=== PATIENT | female | born 1945 | race Caucasian/White ===

== ENCOUNTER 2017-12-27 21:18 | Inpatient (IN) ==
[2017-12-27 22:30] LABS: Basophils # 0.1 K/mcL (0.0-0.2); Basophils % 0.7 %; Eosinophils # 0.1 K/mcL (0.0-0.6); Eosinophils % 1.4 %; Immature Granulocytes % 0.8 % (0-4); Lymphocytes # 1.3 K/mcL (0.6-4.6); Mean Corpuscular HGB Conc 33.3 g/dL (31.6-35.5); Mean Corpuscular Hemoglobin 27.5 pg (28.0-33.3); Mean Corpuscular Volume 82.6 fL (83.0-100.0); Mean Platelet Volume 10.7 fL (9.4-12.4); Monocytes # 0.5 K/mcL (0.0-1.3); Monocytes % 4.7 %; Neutrophils # 8.1 K/mcL (1.6-8.9); Platelet Count 227 K/mcL (140-400); Red Blood Count 4.72 M/mcL (3.82-4.97); Red Cell Distribution Width 14.1 % (11.5-14.5); Segmented Neutrophils % 79.4 %
[2017-12-27 22:58] LABS: Troponin I < 0.03 ng/mL (< 0.04)
--- NOTE | 2017-12-27 23:09 | Emergency Department Note ---
Disposition Clinical Impression: Pancreatitis, acute, Abdominal pain Disposition: Admitted As Inpatient Condition: Good Referrals: Aaron Arreaga MD [Primary Care Provider] - Forms: ED Satisfaction Letter, Work/School Release Time of Disposition: 00:10 Abdominal Pain HPI - General Chief Complaint: ED Abdominal Pain Stated Complaint: all over pain/ messed up bowels. Time Seen by Provider: 12/27/17 21:54 Source: patient, family Limitations: no limitations Nursing Notes Reviewed: Yes Vital Signs Reviewed: Yes - History of Present Illness HPI Narrative: 72-year-old female presents to the emergency room for abdominal pain. States it started in her lower chest and then radiates down to her pubic area. Started a few days ago. She states his symptoms got worse tonight. She is been having abdominal pain for 3 months but one to get it checked out tonight. She denies vomiting. No diarrhea. No other complaints. No symptom modification. Pain Scale: 10 - Related Data Home Medications Medication Instructions Recorded Confirmed Albuterol Neb [Proventil Neb] 2.5 mg IH Q4HR PRN 05/25/16 05/25/16 Albuterol Sulfate [Proair Hfa] 2 puff IH Q4H PRN 05/25/16 05/25/16 Alendronate Sodium [Fosamax] 70 mg PO QWEEK 05/25/16 05/25/16 Calcium Carbonate/Vitamin D3 1 tab PO DAILY 05/25/16 05/25/16 [Calcium 500 + Vit D 200 Caplet] Fluticasone/Salmeterol [Advair 1 puff IH BID 05/25/16 05/25/16 250-50 Diskus] Lisinopril [Zestril] 10 mg PO DAILY 05/25/16 05/25/16 Magnesium Oxide [Mgo] 400 mg PO DAILY 05/25/16 05/25/16 Omeprazole [PriLOSEC] 40 mg PO DAILY 05/25/16 05/25/16 Oxygen 1 each .ROUTE AD 05/25/16 05/25/16 Pramipexole [Mirapex] 0.25 mg PO HS 05/25/16 05/25/16 Roflumilast [Daliresp] 500 mcg PO DAILY 05/25/16 05/25/16 Sertraline [Zoloft] 100 mg PO DAILY 05/25/16 05/25/16 Simvastatin [Zocor] 80 mg PO DAILY 05/25/16 05/25/16 Umeclidinium [place] [Incruse 1 puff IH DAILY 05/25/16 05/25/16 Ellipta] hydroCHLOROthiazide 25 mg PO DAILY 05/25/16 05/25/16 [Hydrochlorothiazide] Allergies Allergy/AdvReac Type Severity Reaction Status Date / Time NSAIDS (Non-Steroidal Allergy See Verified 05/25/16 11:44 Anti-Inflamma Comments All systems ED: reviewed and negative except as stated. Constitutional: Reports: as per HPI Eyes: Reports: as per HPI Cardiovascular: Reports: chest pain. Denies: palpitations Respiratory: Denies: cough Gastrointestinal: Reports: abdominal pain Genitourinary: Reports: as per HPI Musculoskeletal: Reports: as per HPI Integumentary: Reports: as per HPI Neurological: Reports: as per HPI Psychiatric: Reports: as per HPI Endocrine: Reports: as per HPI Hematological/Lymphatic: Reports: as per HPI Abdominal Pain PMH - Past Medical History Medical history: Reports: arthritis, asthma, COPD, GERD, hyperlipidemia, hypertension, renal disease Psychiatric history: Reports: depression - Social History Smoking status: Never smoker Alcohol use: Reports: none Drug use: Reports: none Physical Exam HEENT: Head atraumatic normocephalic. Pharynx clear with no exudates. Oral mucosa moist. Uvula midline. TMs clear bilaterally. Trachea midline. No lymphadenopathy. Heart: Regular rate and rhythm. Normal S1 and S2. No gallops, rubs, or murmurs. Lungs: Clear to auscultation bilaterally. No evidence of any rhonchi wheezing or rales. Abdomen: Abdomen is soft. Generalized tenderness on palpation. No guarding. No peritoneal signs. Normal bowel sounds. Extremities: No evidence of cyanosis clubbing or edema. Neuro: Cranial nerves II through XII grossly intact. No focal motor or sensory deficits. Speech is clear. Skin: Normal color. dry. Psych: normal mentation. - General Limitations: no limitations General appearance: alert, in no apparent distress Course Vital Signs Temperature 97.7 F 12/27/17 21:20 Pulse Rate 61 12/27/17 21:20 Respiratory Rate 18 12/27/17 21:20 Blood Pressure 167/82 12/27/17 21:20 O2 Sat by Pulse Oximetry 96 12/27/17 21:20 Temperature 97.7 F 12/27/17 21:20 Pulse Rate 60 12/27/17 23:51 Respiratory Rate 20 12/27/17 23:51 Blood Pressure 166/50 12/27/17 23:51 O2 Sat by Pulse Oximetry 96 12/27/17 23:51 Oxygen Delivery Oxygen Delivery Nasal Cannula Abdominal Pain - MDM Narrative Medical decision making narrative: Patient has evidence of pancreatitis noted on her lab work as well as her CT scan. Patient will be admitted for this. Etiologies include possible pharmacologic etiology with her being on hydrochlorothiazide. I did speak with the hospitalist. Patient will be admitted to their service. - Medical Records Medical records reviewed: Yes I reviewed the patient's medical records. - Lab Data Lab results reviewed: Yes I reviewed the patient's lab results. Result diagrams: 12/27/17 22:18 12/27/17 22:18 Lab Results 12/27/17 12/27/17 Range/Units 22:18 22:18 WBC 10.2 (4.3-11.1) K/mcL RBC 4.72 (3.82-4.97) M/mcL Hgb 13.0 (11.5-15.4) g/dL Hct 39.0 (35.3-44.9) % MCV 82.6 L (83.0-100.0) fL MCH 27.5 L (28.0-33.3) pg MCHC 33.3 (31.6-35.5) g/dL RDW 14.1 (11.5-14.5) % Plt Count 227 (140-400) K/mcL MPV 10.7 (9.4-12.4) fL Immature Gran % 0.8 (0-4) % Seg Neutrophils % 79.4 % Lymphocytes % 13.0 % Monocytes % 4.7 % Eosinophils % 1.4 % Basophils % 0.7 % Neutrophils # 8.1 (1.6-8.9) K/mcL Lymphocytes # 1.3 (0.6-4.6) K/mcL Monocytes # 0.5 (0.0-1.3) K/mcL Eosinophils # 0.1 (0.0-0.6) K/mcL Basophils # 0.1 (0.0-0.2) K/mcL Sodium 133 L (136-145) mEq/L Potassium 4.1 (3.5-5.1) mEq/L Chloride 98 (98-107) mEq/L Carbon Dioxide 24 (23-29) mEq/L BUN 19 (8-23) mg/dL Creatinine 0.94 (0.60-1.20) mg/dL Est GFR ( Amer) > 60 (> 60) Est GFR (Non-Af Amer) 58 L (> 60) BUN/Creatinine Ratio 20 (6-26) Glucose 420 H (70-105) mg/dL Calculated Osmolality 296 (280-300) Calcium 9.3 (8.6-10.3) mg/dL Total Bilirubin 0.5 (0.3-1.0) mg/dL Direct Bilirubin 0.1 (0.0-0.2) mg/dL Indirect Bilirubin 0.4 (0.0-1.2) mg/dL AST 20 (13-39) Units/L ALT 21 (7-52) Units/L Alkaline Phosphatase 93 (34-104) Units/L Troponin I < 0.03 (< 0.04) ng/mL Serum Total Protein 6.3 L (6.4-8.9) g/dL Albumin 3.9 (3.5-5.7) g/dL Globulin 2.4 (2.4-3.5) g/dL Albumin/Globulin Ratio 1.6 (1.1-2.2) Lipase 734 H (11-82) Units/L - Radiology Data Radiology results reviewed: Yes I reviewed the patient's radiology results.
[2017-12-27] MEDS ORDERED: *HR* Nalbuphine 10 MG/ML AMPUL IVP ONE (23:10)
[2017-12-27] MEDS ORDERED: Ondansetron 4 MG/2 ML VIAL IVP ONE (23:10)
[2017-12-27 23:14] LABS: Alanine Aminotransferase 21 Units/L (7-52); Albumin 3.9 g/dL (3.5-5.7); Albumin/Globulin Ratio 1.6 (1.1-2.2); Alkaline Phosphatase 93 Units/L (34-104); Aspartate Amino Transferase 20 Units/L (13-39); BUN/Creatinine Ratio 20 (6-26); Bilirubin,Direct 0.1 mg/dL (0.0-0.2); Bilirubin,Indirect 0.4 mg/dL (0.0-1.2); Bilirubin,Total 0.5 mg/dL (0.3-1.0); Blood Urea Nitrogen 19 mg/dL (8-23); Calcium 9.3 mg/dL (8.6-10.3); Carbon Dioxide 24 mEq/L (23-29); Chloride 98 mEq/L (98-107); Globulin 2.4 g/dL (2.4-3.5); Glucose 420 mg/dL (70-105); Lipase 734 Units/L (11-82); Osmolality,Calculated 296 (280-300); Potassium 4.1 mEq/L (3.5-5.1); Sodium 133 mEq/L (136-145); Total Protein 6.3 g/dL (6.4-8.9); eGFR For Non-African Americans 58 (> 60)
[2017-12-27] MEDS ORDERED: 0.9 % Sodium Chloride 1,000 ML IVC ONE (23:52)
[2017-12-27] MEDS ORDERED: Insulin Regular, Human 100 UNIT/ML SQ ONE (23:52)
[2017-12-28] MEDS ORDERED: *HR* HYDROmorphone (PF) 1 MG/ML SYRINGE IVP ONE (00:47)
[2017-12-28] MEDS ORDERED: Ondansetron 4 MG/2 ML VIAL IVP ONE (00:47)
[2017-12-28] MEDS ORDERED: *HR* FentaNYL (PF) 100 MCG/2 ML VIAL IVP ONE (05:09)
[2017-12-28] MEDS ORDERED: D5% in Water 1,000 ML IVC PRN (05:39)
[2017-12-28] MEDS ORDERED: Dextrose Gel 15 GM/37.5 ML TUBE PO PRN ×2 (05:39)
[2017-12-28] MEDS ORDERED: Naloxone 0.4 MG/ML INJ IVP PRN (05:39)
[2017-12-28] MEDS ORDERED: *HR* Dextrose 50 % in Water (Syg) 50 ML SYRINGE IVP PRN (05:39)
[2017-12-28] MEDS ORDERED: Albuterol 2.5 MG/3 ML NEBULIZER IH PRN (05:44)
--- NOTE | 2017-12-28 05:57 | Internal Med History&Physical ---
Date of Encounter: 12/28/17 Time of Encounter: 05:47 Internal Medicine - H&P: HPI Chief complaint: abdominal pain Admitted From: Emergency Dept Plans for Post Hospital Care: Home History of present illness: Ms. Eugene is a 72 year old female who presents with acute onset abdominal pain with protracted nausea and dry heaving over the last 24 hours. She has had no vomiting or diarrhea. She has been having abdominal pain off and on for the last 3 months concentrated mostly in her midepigastrium and right upper quadrant. However, she had severe and acute onset yesterday that prompted her to come to the ER. Up until yesterday, her pain has been bearable, and she has been able to eat. As of yesterday, however, her pain has been unbearable and she has been unable to eat or drink any oral intake. She denies any fevers, chills, or night sweats. She denies any hematemesis, melena, or hematochezia. She still has her gallbladder, but she does not know if she has had any gallstones or gallbladder problems in the past. She denies any prior gastric or duodenal ulcer disease. She does take medication for GERD, however. She denies any alcohol use or abuse. She denies any history of uncontrolled hyperlipidemia. Workup in ER revealed patient to have acute pancreatitis by lab values and by imaging. She denies any prior history of pancreatitis. Upon my assessment of the patient, she is complaining of epigastric and diffuse abdominal pain that is crampy in nature and episodic. She has active nausea and dry heaving, but she is unable to vomit. Past Med Surg Social Fam HX - Past Medical History Attestation: Yes The following information was validated with the patient. Source: patient, old records reviewed Medical history: arthritis, asthma, COPD, GERD, hyperlipidemia, hypertension, renal disease Psychiatric history: depression - Past Surgical History Surgical History: hysterectomy Additional surgical history: ear surgery - Social History Smoking Status: Former smoker Smokeless Tobacco Status: No Alcohol use: none Drug use: none Current living situation: Home Activity Level: Independent ambulation Recent Out of Country Travel Within the Last 8 Weeks: No - Family History Mother History Unknown: Yes Adopted: No Family Member Ethnicity: Non- Living Status: Cause of : aneurysm Hx Family Cardiac Disorders: No Hx Family Respiratory Disorders: No Hx Family Cancer: No Hx Family GI Disorders: No Hx Family Genitourinary Disorders: No Hx Family Endocrine Disorder: No Hx Family Musculoskeletal Disorders: No Hx Family Neuromuscular Disorders: No Hx Family Neurologic Disorders: No Hx Family HEENT Disorders: No Hx Family Autoimmune Disorders: No Hx Family Reproductive Disorders: No Hx Family Psychosocial Disorders: No - Additional Family History Additional family history: No FH pancreatitis Internal Medicine - H&P: Meds Albuterol Neb [Proventil Neb] 2.5 mg IH Q4HR PRN 05/25/16 [History] Albuterol Sulfate [Proair Hfa] 2 puff IH Q4H PRN 05/25/16 [History] Alendronate Sodium [Fosamax] 70 mg PO QWEEK 05/25/16 [History] Calcium Carbonate/Vitamin D3 [Calcium 500 + Vit D 200 Caplet] 1 tab PO DAILY [History] Fluticasone/Salmeterol [Advair 250-50 Diskus] 1 puff IH BID 05/25/16 [History] Lisinopril [Zestril] 10 mg PO DAILY 05/25/16 [History] Magnesium Oxide [Mgo] 400 mg PO DAILY 05/25/16 [History] Omeprazole [PriLOSEC] 40 mg PO DAILY 05/25/16 [History] Oxygen 1 each .ROUTE AD 05/25/16 [History] Pramipexole [Mirapex] 0.25 mg PO HS 05/25/16 [History] Roflumilast [Daliresp] 500 mcg PO DAILY 05/25/16 [History] Sertraline [Zoloft] 100 mg PO DAILY 05/25/16 [History] Simvastatin [Zocor] 80 mg PO DAILY 05/25/16 [History] Umeclidinium [place] [Incruse Ellipta] 1 puff IH DAILY 05/25/16 [History] hydroCHLOROthiazide [Hydrochlorothiazide] 25 mg PO DAILY 05/25/16 [History] 3 Allergy/AdvReac Type Severity Reaction Status Date / Time NSAIDS (Non-Steroidal Allergy See Verified 05/25/16 11:44 Anti-Inflamma Comments - Constitutional Constitutional: no chills, no fever(s), no night sweats - EENT Eyes: no blurry vision, no change in vision Ears: no ear pain, no tinnitus Nose, mouth and throat: no nasal congestion, no sinus pressure, no sore throat - Cardiovascular Cardiovascular ROS IM: no chest pain, no dyspnea, no edema, no orthopnea, no syncope - Respiratory Respiratory: no cough, no hemoptysis, no chest congestion, no excessive phlegm production, no change in phlegm color - Gastrointestinal Gastrointestinal: abdominal pain (epigastric --> RUQ), heartburn, nausea, no diarrhea, no hematemesis, no hematochezia, no melena, no vomiting - Genitourinary Genitourinary: no dysuria, no flank pain, no hematuria - Musculoskeletal Musculoskeletal ROS IM: no arthralgias, no back pain - Integumentary Integumentary IM: no rash, no jaundice - Neurological Neurological ROS: no dizziness, no focal weakness, no frequent falls, no headache(s) - Psychiatric Psychiatric: no anxiety, no depression - Endocrine Endocrine IM: no polydipsia, no polyuria - Hematologic/Lymphatic Hematologic/Lymphatic: no easy bruising - Allergic/Immunologic Allergic/Immunologic: GI upset with certain foods, no wheezing - Constitutional Vitals: Temp Pulse Resp BP Pulse Ox 98.9 F 100 18 176/72 92 12/28/17 03:35 12/28/17 03:35 12/28/17 03:35 12/28/17 03:35 12/28/17 03:35 General appearance: Present: cooperative, mild distress (moderate distress due to epigastric pain), A&O X 3, answers questions appropriately Exam: see below - Head Head exam: Present: normal inspection - Eye Eye exam: Present: EOMI, normal appearance, PERRL. Absent: scleral icterus Pupils: Present: normal accommodation - ENT ENT exam: Present: mucous membranes dry, normal exam, normal oropharynx - Neck Neck exam general surgery: Present: full ROM, supple. Absent: tenderness, nuchal rigidity, thyromegaly - Respiratory Respiratory exam: Present: CTAB. Absent: chest wall tenderness, rales, rhonchi , wheezes - Cardiovascular Cardiovascular exam: Present: distant heart sounds, RRR, +S1, +S2. Absent: diastolic murmur, systolic murmur - GI/Abdominal GI/Abdominal exam: Present: hypoactive bowel sounds, soft, tenderness ( epigastrium/RUQ), no peritoneal signs. Absent: guarding, rebound, rigid - Extremities Exam Extremities exam: Present: full ROM, normal capillary refill, warm, radial pulses palpable and symmetrical. Absent: calf tenderness, joint swelling, pedal edema, tenderness - Back Exam Back exam: Present: normal inspection. Absent: CVA tenderness (L), CVA tenderness (R) - Neurological Exam Neurological exam: Present: alert, CN II-XII intact, oriented X3, no focal deficits, strengths equal and symetr throughout - Psychiatric Psychiatric exam: Present: normal affect, normal mood - Skin Skin exam: Present: dry, intact, warm Internal Med - H&P Results - Labs CBC & Chem 7: 12/27/17 22:18 12/27/17 22:18 - Diagnostic Studies CT scan - abdomen Status: image reviewed by me (Report reviewed as well: pancreatitis noted) - Assessment and plan (1) Pancreatitis, acute Current Visit: Yes Status: Acute Assessment and plan: 1. Patient will be kept npo. 2. Will hydrate with IVF and treat with anti-emetics and IV pain meds. 3. Hold home meds while npo. 4. Will add IV PPI for the possibility of gastritis and/or ulcer disease. 5. Will check fasting lipid profile. 6. Will order GB ultrasound to evaluate for gall stones. 7. Patient may need GI and/or surgery consult pending the results of work-up above. Patient may also need MRI abdomen/pancreas. Qualifiers: Pancreatitis type: idiopathic Acute pancreatitis complication: no infection or necrosis Qualified Code(s): K85.00 - Idiopathic acute pancreatitis without necrosis or infection (2) Hyperglycemia Current Visit: Yes Status: Acute Assessment and plan: 1. Will monitor glucose and use SSI for glucose control. 2. May need basal insulin dosing as well. 3. Monitor and adjust dosing as necessary. (3) Hypertension Current Visit: Yes Status: Chronic Assessment and plan: 1. Monitor BP and treat as needed with PRN meds for now. 2. Hold oral home meds. 3. BP will likely drop some with IV opiate pain control. Qualifiers: Hypertension type: essential hypertension Qualified Code(s): I10 - Essential (primary) hypertension (4) DVT prophylaxis Current Visit: Yes Status: Acute Assessment and plan: 1. Heparin SQ.
[2017-12-28] MEDS: Pantoprazole 40 MG VIAL IVP SCH ×3 (07:00→17:51)
[2017-12-28] MEDS: *HR* Heparin 5,000 UNIT/ML VIAL SQ SCH ×2 (07:03→17:53)
[2017-12-28] MEDS: Insulin LISPRO 300 UNITS/3 ML VIAL SQ SCH ×4 (08:48→17:52)
[2017-12-28] MEDS: *HR* FentaNYL (PF) 100 MCG/2 ML VIAL IVP PRN ×6 (08:48→23:56)
--- NOTE | 2017-12-28 13:45 | Internal Med Progress Note ---
Hospitalist Progress Note - Encounter Date of Encounter: 12/28/17 Time of Encounter: 10:00 - Subjective Interval History: had ultrasound this morning of abdomen, cc of severe abdominal pain right upper quad, d/t compression. She continues with NPO, states is dry heaving , today with associated nausea. Reports that she had been having left upper and lower abdominal pain for 2 weeks prior to being seen in the ED emergency room. - Exam Vitals: Temp Pulse Resp BP Pulse Ox 98.3 F 65 18 149/80 94 12/28/17 11:40 12/28/17 11:40 12/28/17 11:40 12/28/17 11:40 12/28/17 11:40 Exam: stable - Assessment and Plan (1) Pancreatitis, acute Current Visit: Yes Status: Acute Assessment and Plan: Lipase remains elevated @734, Remains NPO with associated abdominal pain 10/10 pain scale generalized. GB US completed with impression of fatthy liver, and simple left hepatic cyst 4.5 2.1x e2.4 cm left hepatic lobe, no upper quad ascities pancreas unremarkable. Zofran 4mg IV q6h prn for nausea/vomting Continue with current medications Continue with q6h fingersticks, and ss coverage Maintain NPO status (2) Hyperglycemia Current Visit: Yes Status: Acute Assessment and Plan: FBG 420, will continue with ss humalog insulin. q6h (3) Hypertension Current Visit: Yes Status: Chronic Assessment and Plan: improved will continue to monitor (4) DVT prophylaxis Current Visit: Yes Status: Acute Assessment and Plan: per protocol - Time Spent with Patient Total time spent is greater than 50% in coordination of care (as documented) at patient's floor/unit and/or counseling patient: less than 15 minutes Plan of Care Discussed with: patient Internal Medicine: Result - Labs CBC & Chem 7: 12/27/17 22:18 12/27/17 22:18 - Impressions Impressions Gallbladder Ultrasound 12/28/17 09:00 IMPRESSION: Fatty liver. Simple left hepatic cyst. D/ / July Cordero MD / July Cordero MD Interpreting Provider: July Cordero MD Consult Discharge Plan - Plan Referrals: Aaron Arreaga MD [Primary Care Provider] - (1) Pancreatitis, acute Qualifiers: Pancreatitis type: idiopathic Acute pancreatitis complication: no infection or necrosis Qualified Code(s): K85.00 - Idiopathic acute pancreatitis without necrosis or infection (3) Hypertension Qualifiers: Hypertension type: essential hypertension Qualified Code(s): I10 - Essential (primary) hypertension
--- NOTE | 2017-12-28 16:44 | Internal Med Progress Note ---
Hospitalist Progress Note - Encounter Date of Encounter: 12/28/17 Time of Encounter: 14:00 - Subjective Interval History: had ultrasound this morning of abdomen, pending results cc of severe abdominal pain right upper quad, d/t compression. She continues with NPO, states is dry heaving , today with associated nausea. Reports that she had been having left upper and lower abdominal pain for 2 weeks prior to being seen in the ED emergency room. Denies hx of diabetes, or other chronic abdominal disease. - Exam Vitals: Temp Pulse Resp BP Pulse Ox 98.8 F 63 17 142/78 91 12/28/17 15:26 12/28/17 15:26 12/28/17 15:26 12/28/17 15:26 12/28/17 15:26 Exam: Stable Vital Signs Temp Pulse Resp BP Pulse Ox 12/28/17 15:26 98.8 F 63 17 142/78 91 12/28/17 11:40 98.3 F 65 18 149/80 94 12/28/17 08:07 98.3 F 66 18 175/67 91 12/28/17 03:35 98.9 F 100 18 176/72 92 12/28/17 03:30 95 12/28/17 00:35 63 18 175/145 95 12/27/17 23:51 60 20 166/50 96 12/27/17 23:07 74 20 183/47 96 12/27/17 21:52 97 12/27/17 21:48 63 20 158/69 97 12/27/17 21:20 97.7 F 61 18 167/82 96 Intake and Output 12/28/17 12/28/17 12/28/17 07:59 15:59 23:59 Output Total 900 / 900 Balance -900 / -900 Output: Catheter 900 / 900 Other: Weight 120.2 kg Blood Glucose* 267 Patient Weight 12/28/17 23:59 Weight 120.2 kg - Assessment and Plan (1) Pancreatitis, acute Current Visit: Yes Status: Acute Assessment and Plan: Gall bladder US reviewed and Last Result Calcium 9.3 mg/dL (8.6-10.3) 12/27/17 22:18 Troponin I < 0.03 ng/mL (< 0.04) 12/27/17 22:18 Entire Visit Hgb 13.0 g/dL (11.5-15.4) 12/27/17 22:18 Hct 39.0 % (35.3-44.9) 12/27/17 22:18 Total Bilirubin 0.5 mg/dL (0.3-1.0) 12/27/17 22:18 AST 20 Units/L (13-39) 12/27/17 22:18 ALT 21 Units/L (7-52) 12/27/17 22:18 Lipase 734 Units/L (11-82) H 12/27/17 22:18 FINDINGS: LIVER: Increased echogenicity of the liver. Simple 4.5 x 2.1 x 2.4 cm cyst in the left hepatic lobe. BILIARY SYSTEM: Gallbladder is unremarkable without evidence of pericholecystic fluid, wall thickening or stones. Negative sonographic Kilpatrick's sign. Common bile duct is within normal limits measuring 3 mm. RIGHT KIDNEY: The right kidney is grossly unremarkable without evidence of hydronephrosis. PANCREAS: Visualized portions of the pancreas are unremarkable. OTHER: No evidence of right upper quadrant ascites. US/US gall bladder IMPRESSION: Fatty liver. Simple left hepatic cyst. and CT scan of abdomin reveals ower Chest: Visualized portions of the lungs are clear. Cardiac and posterior mediastinal structures visualized are unremarkable. Organs: Hypoattenuation throughout the liver reflects hepatic steatosis. Craniocaudal liver length 21.3 cm. 2 adjacent hypoattenuating foci each measuring 11 mm, segment IV, images 70 and 72. No other discrete hepatic lesion or intrahepatic bile duct dilatation is seen. The gallbladder, kidneys, spleen and adrenal glands appear unremarkable. Peripancreatic inflammatory changes predominate about the body and tail. Pancreatic enhancement abnormality cannot be excluded without IV contrast administration. No fluid collection is seen. GI/Bowel: Multifocal diverticula involve the descending and sigmoid colon without evidence of acute inflammatory change. No diffuse or focal bowel wall thickening evident. No inflammatory changes evident. No obstruction is seen. The appendix is not clearly demonstrated. Pelvis: It appears the patient has had hysterectomy or the uterus is markedly atrophic. Urinary bladder is decompressed by Villarreal catheter. No pelvic adenopathy or free fluid. No pneumoperitoneum. Peritoneum/Retroperitoneum: Calcific atherosclerotic disease aorta. No aneurysm. Unremarkable appearance of the IVC. No adenopathy or fluid. Bones/Soft Tissues: No acute superficial soft tissue or osseous structure abnormality evident. CT/CT abd pelvis wo no iv no oral IMPRESSION: 1. Findings of acute pancreatitis without complicating factor evident on unenhanced imaging. Suboptimal evaluation of acute pancreatitis without IV contrast administration. 2. Indeterminate hepatic lesions segment IV possibly reflecting cysts. The follow-up nonemergent MRI abdomen attention liver recommended for additional characterization. 3. Hepatic steatosis. 4. Hepatomegaly. 5. Diverticulosis coli without CT evidence of acute diverticulitis. GI consult is made, and pending. Will continue with pain managment and IV fluids Will continue with anti emetic s [place] continue to monitor labs Given humalog insulin plus add Levemir hs. (2) Hyperglycemia Current Visit: Yes Status: Acute Assessment and Plan: DT acute pancreatitis , will continue to monitor blood glucose and treat with insulin (3) Hypertension Current Visit: Yes Status: Chronic Assessment and Plan: Vital Signs Temp Pulse Resp BP Pulse Ox 12/28/17 15:26 98.8 F 63 17 142/78 91 12/28/17 11:40 98.3 F 65 18 149/80 94 12/28/17 08:07 98.3 F 66 18 175/67 91 12/28/17 03:35 98.9 F 100 18 176/72 92 12/28/17 03:30 95 12/28/17 00:35 63 18 175/145 95 12/27/17 23:51 60 20 166/50 96 12/27/17 23:07 74 20 183/47 96 12/27/17 21:52 97 12/27/17 21:48 63 20 158/69 97 12/27/17 21:20 97.7 F 61 18 167/82 96 Intake and Output 12/28/17 12/28/17 12/28/17 07:59 15:59 23:59 Output Total 900 / 900 Balance -900 / -900 Output: Catheter 900 / 900 Other: Weight 120.2 kg Blood Glucose* 267 Patient Weight 12/28/17 23:59 Weight 120.2 kg (4) DVT prophylaxis Current Visit: Yes Status: Acute Assessment and Plan: per protocol - Time Spent with Patient Total time spent is greater than 50% in coordination of care (as documented) at patient's floor/unit and/or counseling patient: less than 15 minutes Plan of Care Discussed with: patient Internal Medicine: Result - Labs CBC & Chem 7: 12/27/17 22:18 12/27/17 22:18 - Impressions Impressions Gallbladder Ultrasound 12/28/17 09:00 IMPRESSION: Fatty liver. Simple left hepatic cyst. D/ / July Cordero MD / July Cordero MD Interpreting Provider: July Cordero MD Consult Discharge Plan - Plan Referrals: Aaron Arreaga MD [Primary Care Provider] - (1) Pancreatitis, acute Qualifiers: Pancreatitis type: idiopathic Acute pancreatitis complication: no infection or necrosis Qualified Code(s): K85.00 - Idiopathic acute pancreatitis without necrosis or infection (3) Hypertension Qualifiers: Hypertension type: essential hypertension Qualified Code(s): I10 - Essential (primary) hypertension
[2017-12-28] MEDS: 0.9 % Sodium Chloride 1,000 ML IVC SCH ×2 (19:08→21:36)
[2017-12-28] MEDS: Insulin DETEMIR 100 UNIT/ML X5UNITS SQ SCH (20:52)
[2017-12-29] MEDS: Insulin LISPRO 300 UNITS/3 ML VIAL SQ SCH ×4 (00:08→17:40)
[2017-12-29] MEDS: *HR* FentaNYL (PF) 100 MCG/2 ML VIAL IVP PRN (04:14)
[2017-12-29 04:21] LABS: Basophils % 0.2 %; Eosinophils % 0.2 %; Hematocrit 39.1 % (35.3-44.9); Hemoglobin 12.6 g/dL (11.5-15.4); Immature Granulocytes % 0.8 % (0-4); Lymphocytes # 0.9 K/mcL (0.6-4.6); Lymphocytes % 7.4 %; Mean Corpuscular HGB Conc 32.2 g/dL (31.6-35.5); Mean Corpuscular Hemoglobin 27.7 pg (28.0-33.3); Mean Corpuscular Volume 85.9 fL (83.0-100.0); Mean Platelet Volume 10.3 fL (9.4-12.4); Monocytes # 0.8 K/mcL (0.0-1.3); Monocytes % 5.9 %; Neutrophils # 10.8 K/mcL (1.6-8.9); Platelet Count 185 K/mcL (140-400); Red Blood Count 4.55 M/mcL (3.82-4.97); Red Cell Distribution Width 14.6 % (11.5-14.5); Segmented Neutrophils % 85.5 %
[2017-12-29 04:26] LABS: INR 1.1; Prothrombin Time 12.8 Seconds (9.4-12.1)
[2017-12-29 04:29] LABS: Activated Partial Thrombo Time 28.1 Seconds (26.0-36.0)
[2017-12-29 04:43] LABS: Alanine Aminotransferase 16 Units/L (7-52); Albumin 3.6 g/dL (3.5-5.7); Albumin/Globulin Ratio 1.5 (1.1-2.2); Alkaline Phosphatase 76 Units/L (34-104); Amylase 62 Units/L (29-103); Aspartate Amino Transferase 14 Units/L (13-39); BUN/Creatinine Ratio 25 (6-26); Bilirubin,Direct 0.2 mg/dL (0.0-0.2); Bilirubin,Indirect 0.4 mg/dL (0.0-1.2); Bilirubin,Total 0.6 mg/dL (0.3-1.0); Blood Urea Nitrogen 16 mg/dL (8-23); Calcium 8.7 mg/dL (8.6-10.3); Carbon Dioxide 19 mEq/L (23-29); Chloride 106 mEq/L (98-107); Cholesterol 133 mg/dL (< 200); Globulin 2.4 g/dL (2.4-3.5); Glucose 234 mg/dL (70-105); HDL Cholesterol 44 mg/dL (40-59); LDL Cholesterol,Calculated 55 mg/dL (0-99); Lipase 81 Units/L (11-82); Magnesium 1.5 mg/dL (1.6-2.6); Osmolality,Calculated 291 (280-300); Potassium 3.8 mEq/L (3.5-5.1); Sodium 136 mEq/L (136-145); Triglycerides 168 mg/dL (< 150); eGFR For Non-African Americans > 60 (> 60)
[2017-12-29] MEDS: Ondansetron 4 MG/2 ML VIAL IVP PRN ×3 (05:56→20:20)
[2017-12-29] MEDS: *HR* Heparin 5,000 UNIT/ML VIAL SQ SCH ×2 (05:56→17:14)
[2017-12-29] MEDS: Pantoprazole 40 MG VIAL IVP SCH ×2 (05:56→17:10)
[2017-12-29] MEDS: Acetaminophen 325 MG TABLET PO PRN ×3 (06:05→22:47)
[2017-12-29] MEDS: Nystatin POWDER 30 GM BOTTLE TP SCH ×2 (10:30→20:27)
--- NOTE | 2017-12-29 10:41 | Gastroenterology Consult Note ---
<Michela Tolliver - Last Filed: 12/29/17 10:51> Date of Encounter: 12/29/17 Time of Encounter: 09:30 - Assessment and plan (1) Pancreatitis, acute Status: Acute Assessment and plan: Pt denies alcohol use or family history of pancreatitis, gallbladder ultrasound was without stones. Will order labs to rule out autoimmune, triglyceride pancreatitis. If idiopathic pancreatitis will need EUS, can be done as an outpatient if pt is improved. Labs are improved on NPO and IVF. Qualifiers: Pancreatitis type: idiopathic Acute pancreatitis complication: no infection or necrosis Qualified Code(s): K85.00 - Idiopathic acute pancreatitis without necrosis or infection (2) Constipation Status: Acute Assessment and plan: Pt complains of constipation, she reports no BM x [address] does not show obstruction or large stool burden. She was checked for impaction. Will give dulcolax suppository and can start miralax when she is able to tolerate po. Qualifiers: Constipation type: other constipation type Qualified Code(s): K59.09 - Other constipation (3) Abdominal pain Status: Acute Qualifiers: Abdominal location: generalized Qualified Code(s): R10.84 - Generalized abdominal pain (4) Lesion of liver Status: Acute Assessment and plan: Simple hepatic cyst seen on us gallbladder. May need MRI. - Time Spent With Patient Total time spent is greater than 50% in coordination of care (as documented) at patient's floor/unit and/or counseling patient: GI History of Present Illness - Data of Consult Patient: new to practice Consult date: 12/29/17 Requesting Physician: Satya Vanessa MD - Consult Narrative Reason for consult: acute pancreatitis History of present illness: Ms. Eugene is a 72 year old female who presents with acute onset abdominal pain with protracted nausea and dry heaving over the last 24 hours. She reports abdominal pain off and on for the last 3 months concentrated mostly in her midepigastrium and right upper quadrant. As of monday, however, her pain has been unbearable and she has been unable to eat or drink any oral intake. She denies any fevers, chills, or night sweats. She denies any hematemesis, melena, or hematochezia. She denies any alcohol use or abuse. She denies any history of uncontrolled hyperlipidemia. Gallbladder ultrasound showed normal gallbladder, fatty liver, simple hepatic cyst. CT of the abdomen was consistent with acute pancreatitis, indeterminate hepatic lesions, fatty liver, hepatomegaly and diverticulosis. WBC is 12.6, INR 1.1, LFTs were normal , lipase was 731 on admission is decreased at 81 today. Her daughter is at bedside and pt is complaining of constipation, she reports no BM x [address] abdomen did not show large stool burden. Past Med Surg Social Fam HX - Past Medical History Medical history: arthritis, asthma, COPD, GERD, hyperlipidemia, hypertension, renal disease Psychiatric history: depression - Past Surgical History Surgical History: hysterectomy Additional surgical history: ear surgery - Social History Smoking Status: Former smoker Smokeless Tobacco Status: No Alcohol use: none Drug use: none - Family History Mother History Unknown: Yes Adopted: No Family Member Ethnicity: Non- Living Status: Cause of : aneurysm Hx Family Cardiac Disorders: No Hx Family Respiratory Disorders: No Hx Family Cancer: No Hx Family GI Disorders: No Hx Family Genitourinary Disorders: No Hx Family Endocrine Disorder: No Hx Family Musculoskeletal Disorders: No Hx Family Neuromuscular Disorders: No Hx Family Neurologic Disorders: No Hx Family HEENT Disorders: No Hx Family Autoimmune Disorders: No Hx Family Reproductive Disorders: No Hx Family Psychosocial Disorders: No Review of Systems: GI: as per [facility] GENERAL: denies fever or chills EYES: denies yellow discoloration ENT: denies pain with swallowing or difficulty swallowing CARDIO: denies chest pain, palpitations RESP: Shortness of breath with exertion : denies change in color of urine NEURO: weakness HEME: Denies any bruising MS: denies joint pain, joint swelling or back pain. DERM: denies rash or itching PSYCH: Denies history of anxiety or depression - Constitutional Vitals: Temp Pulse Resp BP Pulse Ox 98.2 F 64 19 146/80 96 12/29/17 06:59 12/29/17 06:59 12/29/17 06:59 12/29/17 06:59 12/29/17 06:59 Exam: CONSTITUTIONAL:~alert, no acute distress.~HEAD:~normocephalic.~EYES:~no jaundice.~NECK:~no obvious swelling.~HEART:~regular rate and rhythm, no murmurs. ~LUNGS:~bilateral fair air entry.~ABDOMEN:~non distended, soft, tender epigastric area, no masses palpable, no organomegaly.~RECTAL EXAM:~ no bloody or black stool, small amount of hard stool noted.~EXTREMITIES:~no clubbing, cyanosis or edema.~SKIN:~no stigmata of chronic liver disease.~NEUROLOGIC:~no obvious focal defect.~~~~ Results - Labs CBC & Chem 7: 12/29/17 04:10 12/29/17 04:10 Labs: Last Result Calcium 8.7 mg/dL (8.6-10.3) 12/29/17 04:10 Troponin I < 0.03 ng/mL (< 0.04) 12/27/17 22:18 Triglycerides 168 mg/dL (< 150) H 12/29/17 04:10 Entire Visit Hgb 12.6 g/dL (11.5-15.4) 12/29/17 04:10 Hct 39.1 % (35.3-44.9) 12/29/17 04:10 PT 12.8 Seconds (9.4-12.1) H 12/29/17 04:10 Total Bilirubin 0.6 mg/dL (0.3-1.0) 12/29/17 04:10 AST 14 Units/L (13-39) 12/29/17 04:10 ALT 16 Units/L (7-52) 12/29/17 04:10 Amylase 62 Units/L (29-103) 12/29/17 04:10 Lipase 81 Units/L (11-82) 12/29/17 04:10 - ABG ABG results: PT/INR, D-dimer PT 12.8 Seconds (9.4-12.1) H 12/29/17 04:10 Consult Discharge Plan - Plan Instructions: Metformin (By mouth), Pancreatitis (DC) Referrals: Aaron Arreaga MD [Primary Care Provider] - 01/02/18 3:15 pm () Prescriptions: metFORMIN [Glucophage] 500 mg PO BIDWM #30 tablet <Salty Wu - Last Filed: 01/03/18 12:07> Date of Encounter: 12/29/17 - Time Spent With Patient Total time spent is greater than 50% in coordination of care (as documented) at patient's floor/unit and/or counseling patient: GI History of Present Illness - Data of Consult Requesting Physician: Satya Vanessa MD - Consult Narrative History of present illness: Ms. Eugene is a 72 year old female - Constitutional Vitals: Temp Pulse Resp BP Pulse Ox 98.0 F 75 16 132/64 95 12/31/17 11:50 12/31/17 11:50 12/31/17 11:50 12/31/17 11:50 12/31/17 11:50 Results - Labs CBC & Chem 7: 12/30/17 05:15 12/30/17 05:15 Labs: Last Result Calcium 8.6 mg/dL (8.6-10.3) 12/30/17 05:15 Troponin I < 0.03 ng/mL (< 0.04) 12/27/17 22:18 Triglycerides 158 mg/dL (< 150) H 12/29/17 10:54 Entire Visit Hgb 11.0 g/dL (11.5-15.4) L D 12/30/17 05:15 Hct 33.7 % (35.3-44.9) L 12/30/17 05:15 PT 12.8 Seconds (9.4-12.1) H 12/29/17 04:10 Total Bilirubin 0.6 mg/dL (0.3-1.0) 12/29/17 04:10 AST 14 Units/L (13-39) 12/29/17 04:10 ALT 16 Units/L (7-52) 12/29/17 04:10 Amylase 62 Units/L (29-103) 12/29/17 04:10 Lipase 21 Units/L (11-82) 12/30/17 05:15 Carcinoembryonic Ag 3.8 ng/mL (Less than 5.0) 12/29/17 10:54 CA 19-9 Antigen 28 U/mL (0-37) 12/29/17 10:54 - ABG ABG results: PT/INR, D-dimer PT 12.8 Seconds (9.4-12.1) H 12/29/17 04:10 - Attending Attestation I have personally performed a face to face evaluation on this patient. I have reviewed and agree with the care plan. History and Exam by me shows:
[2017-12-29 11:41] LABS: Carcinoembryonic Antigen 3.8 ng/mL (Less than 5.0)
[2017-12-29] MEDS: Bisacodyl 10 MG RECTAL SUPPOSITORY RC PRN (12:26)
--- NOTE | 2017-12-29 12:29 | Internal Med Progress Note ---
Hospitalist Progress Note - Encounter Date of Encounter: 12/29/17 Time of Encounter: 12:27 - Subjective Interval History: Patient seen and examined in the room, she reported improved abdominal pain, she reported has not had any bowel movement for 2 weeks. She denies nausea, or vomiting. No fever, chills, or night sweats. No recent weight change. - Exam Vitals: Temp Pulse Resp BP Pulse Ox 97.2 F L 64 20 164/86 95 12/29/17 12:05 12/29/17 12:05 12/29/17 12:05 12/29/17 12:05 12/29/17 12:05 Exam: PHYSICAL EXAMINATION: GENERAL APPEARANCE: The patient is alert, oriented and in no acute distress. HEENT: Head is normocephalic. The sinuses are nontender. Pupils are equal and reactive. The nares are patent. Oropharynx clear without lesions. NECK: Supple without lymphadenopathy. HEART: Regular rate and rhythm. LUNGS: No crackles or wheezes are heard. ABDOMEN: Soft, nontender, nondistended with good bowel sounds heard. Inguinal area is normal. EXTREMITIES: Without cyanosis, clubbing or edema. NEUROLOGICAL: Gross nonfocal. SKIN: Warm and dry without any rash. - Assessment and Plan (1) Pancreatitis, acute Current Visit: Yes Status: Acute Assessment and Plan: 72-year-old female with history of diabetes, hypertension, hyperlipidemia, COPD , and obesity presented with acute onset of abdominal pain. Labs showed elevated lipase, CT abdomen showed acute pancreatitis. GI was consulted. - Undetermined etiology currently, patient denies history of gallbladder disease or alcohol abuse. Right upper quadrant ultrasound no gallstones, normal diameter of CBD. Slightly elevated triglycerides. Normal calcium level. She denies recent introduction of new medications. - Workup for autoimmune pancreatitis, malignancy by GI. ERCP was recommended by GI as well. - Lipase normalized to this morning, patient reported improved abdominal pain. We will start patient on clear liquid diet. - GI following, appreciate help. (2) Hyperglycemia Current Visit: Yes Status: Acute Assessment and Plan: Continue basal, bolus insulin, continue insulin sliding scale, adjust dose as indicated. (3) Hypertension Current Visit: No Status: Chronic Assessment and Plan: Continue home medication. (4) DVT prophylaxis Current Visit: Yes Status: Acute Assessment and Plan: per protocol - Time Spent with Patient Total time spent is greater than 50% in coordination of care (as documented) at patient's floor/unit and/or counseling patient: Greater than 35 minutes Plan of Care Discussed with: patient Internal Medicine: Result - Labs CBC & Chem 7: 12/29/17 04:10 12/29/17 04:10 Labs: Short CBC 12/29/17 Range/Units 04:10 WBC 12.6 H (4.3-11.1) K/mcL Hgb 12.6 (11.5-15.4) g/dL Hct 39.1 (35.3-44.9) % Plt Count 185 (140-400) K/mcL Neutrophils # 10.8 H (1.6-8.9) K/mcL BMP 12/29/17 04:10 Sodium 136 Potassium 3.8 Chloride 106 Carbon Dioxide 19 L BUN 16 Creatinine 0.65 Glucose 234 H Calcium 8.7 Liver Function 12/29/17 Range/Units 04:10 Total Bilirubin 0.6 (0.3-1.0) mg/dL Direct Bilirubin 0.2 (0.0-0.2) mg/dL AST 14 (13-39) Units/L ALT 16 (7-52) Units/L Alkaline Phosphatase 76 (34-104) Units/L Albumin 3.6 (3.5-5.7) g/dL - ABG Interpretation ABG results: PT/INR, D-dimer PT 12.8 Seconds (9.4-12.1) H 12/29/17 04:10 Consult Discharge Plan - Plan Referrals: Aaron Arreaga MD [Primary Care Provider] - 01/02/18 3:15 pm () (1) Pancreatitis, acute Qualifiers: Pancreatitis type: idiopathic Acute pancreatitis complication: no infection or necrosis Qualified Code(s): K85.00 - Idiopathic acute pancreatitis without necrosis or infection (3) Hypertension Qualifiers: Hypertension type: essential hypertension Qualified Code(s): I10 - Essential (primary) hypertension
[2017-12-29 16:19] LABS: VBG Ionized Calcium 1.15 mmol/L (1.15-1.35)
--- NOTE | 2017-12-29 17:19 | Electrocardiograph Report ---
[place] [id number] Test Date: 2017-12-27 Pat Name: Yesica Eugene Department: [id number] Room: 3B38 Gender: F [employer] Fe[employer]: : [id number] Requested By: Mushtaq Bill Order Number: [id number] Reading MD: Ashley Sharma Measurements Intervals Spencer Rate: 61 P: 11 VA: 151 QRS: 5 QRSD: 88 T: 30 QT: 402 QTc: 405 Interpretive Statements Sinus rhythm Low voltage, precordial leads Nonspecific T abnormalities, anterior leads Electronically Signed On 12-29-2017 17:17:30 EDT by Ashley Sharma
[2017-12-29] MEDS: Insulin DETEMIR 100 UNIT/ML X5UNITS SQ SCH (20:20)
[2017-12-29] MEDS: traMADol 50 MG TABLET PO PRN (20:20)
[2017-12-30] MEDS: Insulin LISPRO 300 UNITS/3 ML VIAL SQ SCH ×4 (00:43→18:17)
[2017-12-30] MEDS: Pantoprazole 40 MG VIAL IVP SCH ×2 (05:04→18:10)
[2017-12-30] MEDS: Acetaminophen 325 MG TABLET PO PRN ×2 (05:04→18:21)
[2017-12-30] MEDS: *HR* Heparin 5,000 UNIT/ML VIAL SQ SCH ×2 (05:04→18:14)
[2017-12-30] MEDS: 0.9 % Sodium Chloride 1,000 ML IVC SCH (05:31)
[2017-12-30 05:36] LABS: Basophils % 0.2 %; Eosinophils # 0.2 K/mcL (0.0-0.6); Eosinophils % 1.7 %; Hematocrit 33.7 % (35.3-44.9); Immature Granulocytes % 0.5 % (0-4); Lymphocytes % 9.7 %; Mean Corpuscular HGB Conc 32.6 g/dL (31.6-35.5); Mean Corpuscular Hemoglobin 27.3 pg (28.0-33.3); Mean Corpuscular Volume 83.6 fL (83.0-100.0); Mean Platelet Volume 10.2 fL (9.4-12.4); Monocytes # 0.5 K/mcL (0.0-1.3); Monocytes % 5.2 %; Neutrophils # 8.1 K/mcL (1.6-8.9); Platelet Count 183 K/mcL (140-400); Red Blood Count 4.03 M/mcL (3.82-4.97); Red Cell Distribution Width 14.6 % (11.5-14.5); Segmented Neutrophils % 82.7 %
[2017-12-30 05:54] LABS: BUN/Creatinine Ratio 18 (6-26); Blood Urea Nitrogen 12 mg/dL (8-23); Calcium 8.6 mg/dL (8.6-10.3); Carbon Dioxide 22 mEq/L (23-29); Chloride 102 mEq/L (98-107); Glucose 157 mg/dL (70-105); Lipase 21 Units/L (11-82); Osmolality,Calculated 281 (280-300); Potassium 3.3 mEq/L (3.5-5.1); Sodium 134 mEq/L (136-145); eGFR For Non-African Americans > 60 (> 60)
[2017-12-30] MEDS: Bisacodyl 10 MG RECTAL SUPPOSITORY RC PRN (09:34)
[2017-12-30] MEDS: Nystatin POWDER 30 GM BOTTLE TP SCH (09:35)
[2017-12-30] MEDS: Ondansetron 4 MG/2 ML VIAL IVP PRN ×2 (10:59→21:45)
--- NOTE | 2017-12-30 20:04 | Internal Med Progress Note ---
Hospitalist Progress Note - Encounter Date of Encounter: 12/30/17 Time of Encounter: 17:00 - Subjective Interval History: had ultrasound this morning of abdomen, pending results cc of severe abdominal pain right upper quad, d/t compression. She continues with NPO, states is dry heaving , today with associated nausea. Reports that she had been having left upper and lower abdominal pain for 2 weeks prior to being seen in the ED emergency room. Denies hx of diabetes, or other chronic abdominal disease. , continues with left upper quadrant pain and discomfort. States that she has not had a bowel movement in almost a week. She still continues to state that she has no no appetite for food and is finding it difficult to eat and drink. - Exam Vitals: Temp Pulse Resp BP Pulse Ox 99.1 F 71 16 135/76 97 12/30/17 18:22 12/30/17 18:22 12/30/17 18:22 12/30/17 18:22 12/30/17 18:22 Exam: as above - Assessment and Plan (1) Pancreatitis, acute Current Visit: Yes Status: Acute Assessment and Plan: Mildly febrile with temperature of 99 today. Glucose remains elevated at 157 sodium and potassium remained low at 134 and 3.3 respectively. Lipase normalized to 21 Will continue to monitor levels, and control acute pain, Miralax 17 gm qhs Encouraged to ambulate in room. and walk in hallway with assist . (2) Hyperglycemia Current Visit: Yes Status: Acute Assessment and Plan: Improved remains mildely elevated fasting continue insulin (3) Hypertension Current Visit: No Status: Chronic Assessment and Plan: Improved will continue to monitor (4) DVT prophylaxis Current Visit: Yes Status: Acute Assessment and Plan: per protocol - Summary of Assessment and Plan Summary of Assessment and Plan: Jabier is a 72-year-old female who was entered for from the emergency room with acute pancreatitis and elevated blood sugars abdominal pain. Review of her labs she has normalized on her lipase she is back to baseline with her vital signs blood sugars do remain elevated and she continues on her insulin treatment. She does report today that she has not had a bowel movement in 1 week and since her admission and she is having left upper quadrant pain with a bulging not in the left upper quadrant. Bowel sounds are present but diminished. He is also noted that she is developing some pedal edema she is encouraged to ambulate within the room and go to the bathroom. We will add to her current medication MiraLAX 17 g daily at bedtime followed by 6-8 ounces of water or juice. Antiembolism stockings were knee-high were also ordered for the presence of pedal edema. She will be continued on her current regimen and be monitored but physically and with laboratory levels. He was admitted today as she met standards as an inpatient orders were placed - Time Spent with Patient Total time spent is greater than 50% in coordination of care (as documented) at patient's floor/unit and/or counseling patient: less than 15 minutes Internal Medicine: Result - Labs CBC & Chem 7: 12/30/17 05:15 12/30/17 05:15 - ABG Interpretation ABG results: PT/INR, D-dimer PT 12.8 Seconds (9.4-12.1) H 12/29/17 04:10 Consult Discharge Plan - Plan Referrals: Aaron Arreaag MD [Primary Care Provider] - 01/02/18 3:15 pm () (1) Pancreatitis, acute Qualifiers: Pancreatitis type: idiopathic Acute pancreatitis complication: no infection or necrosis Qualified Code(s): K85.00 - Idiopathic acute pancreatitis without necrosis or infection (3) Hypertension Qualifiers: Hypertension type: essential hypertension Qualified Code(s): I10 - Essential (primary) hypertension
[2017-12-30] MEDS: Budesonide/Formoterol 80/4.5 MDI IH SCH (21:32)
[2017-12-30] MEDS: Famotidine 20 MG TABLET PO SCH (21:36)
[2017-12-30] MEDS: Insulin DETEMIR 100 UNIT/ML X5UNITS SQ SCH (21:36)
[2017-12-31] MEDS: Nystatin POWDER 30 GM BOTTLE TP SCH ×2 (00:17→09:36)
[2017-12-31] MEDS: Insulin LISPRO 300 UNITS/3 ML VIAL SQ SCH ×3 (00:41→11:56)
[2017-12-31] MEDS: Ondansetron 4 MG/2 ML VIAL IVP PRN ×2 (06:38→13:22)
[2017-12-31] MEDS: traMADol 50 MG TABLET PO PRN ×2 (06:38→13:21)
[2017-12-31] MEDS: Pantoprazole 40 MG VIAL IVP SCH (06:38)
[2017-12-31] MEDS: *HR* Heparin 5,000 UNIT/ML VIAL SQ SCH (06:39)
[2017-12-31] MEDS: Budesonide/Formoterol 80/4.5 MDI IH SCH (07:54)
[2017-12-31] MEDS ORDERED: (Umeclidinium Bromide [Incruse Ellipta] 1 PUFF) IH SCH (09:00)
[2017-12-31] MEDS ORDERED: (Roflumilast [Daliresp] 500 MCG) PO SCH (09:00)
[2017-12-31] MEDS: Famotidine 20 MG TABLET PO SCH (09:35)
[2017-12-31 11:51] VITALS: BP 132/64
--- NOTE | 2017-12-31 14:31 | Discharge Summary ---
- NOTES TO OUTPATIENT PROVIDER Notes to Outpatient Provider: PCP in 5 to 7 days Orders not resulted at time of discharge: Out pt diabetic teaching follow up. Follow up out pt with GI for possible out pt ERCP. Date of Encounter: 12/31/17 Time of Encounter: 14:29 - Discharge Diagnosis (1) Pancreatitis, acute Priority: Primary Status: Acute Assessment and Plan: Resolved. Lipase 734 on admission down to 21. CT abdomen consistent with acute pancreatitis. Managed with fluids, bowel rest, prn pain control and antiemetic. Lipid panel reviewed. Qualifiers: Pancreatitis type: idiopathic Acute pancreatitis complication: no infection or necrosis Qualified Code(s): K85.00 - Idiopathic acute pancreatitis without necrosis or infection (2) Hyperglycemia Priority: Secondary Status: Acute Assessment and Plan: Checking hgb A1C. Will start on Metformin at discharge and have her PCP follow up out pt for further management and monitoring of hemoglobin. Out pt diabetic teaching recommended. (3) Hypertension Priority: Secondary Status: Chronic Assessment and Plan: BP better ocntrolled. Probably made worse by pain. May resume home BP medication Qualifiers: Hypertension type: essential hypertension Qualified Code(s): I10 - Essential (primary) hypertension (4) Constipation Priority: Secondary Status: Acute Assessment and Plan: Per daugther, pt had large BM this morning Qualifiers: Constipation type: other constipation type Qualified Code(s): K59.09 - Other constipation (5) Abdominal pain Priority: Secondary Status: Acute Assessment and Plan: Completely resolved. Qualifiers: Abdominal location: generalized Qualified Code(s): R10.84 - Generalized abdominal pain (6) Lesion of liver Priority: Secondary Status: Acute Assessment and Plan: Liver lesion, likely simple hepatic cysts. Follow up abdominal MRI abd results reviewed. Hospital course: Admission HPI Ms. Eugene is a 72 year old female who presents with acute onset abdominal pain with protracted nausea and dry heaving over the last 24 hours. She has had no vomiting or diarrhea. She has been having abdominal pain off and on for the last 3 months concentrated mostly in her midepigastrium and right upper quadrant. However, she had severe and acute onset yesterday that prompted her to come to the ER. Up until yesterday, her pain has been bearable, and she has been able to eat. As of yesterday, however, her pain has been unbearable and she has been unable to eat or drink any oral intake. She denies any fevers, chills, or night sweats. She denies any hematemesis, melena, or hematochezia. She still has her gallbladder, but she does not know if she has had any gallstones or gallbladder problems in the past. She denies any prior gastric or duodenal ulcer disease. She does take medication for GERD, however. She denies any alcohol use or abuse. She denies any history of uncontrolled hyperlipidemia. Workup in ER revealed patient to have acute pancreatitis by lab values and by imaging. She denies any prior history of pancreatitis. Hospital course Upon my assessment of the patient, she is complaining of epigastric and diffuse abdominal pain that is crampy in nature and episodic. She has active nausea and dry heaving, but she is unable to vomit. Lipase 734. WBC 10.2. Abdominal US US/US gall bladder IMPRESSION: Fatty liver. CT abdomen/pelvis Simple left hepatic cyst. CT/CT abd pelvis wo no iv no oral IMPRESSION: 1. Findings of acute pancreatitis without complicating factor evident on unenhanced imaging. Suboptimal evaluation of acute pancreatitis without IV contrast administration. 2. Indeterminate hepatic lesions segment IV possibly reflecting cysts. The follow-up nonemergent MRI abdomen attention liver recommended for additional characterization. 3. Hepatic steatosis. 4. Hepatomegaly. 5. Diverticulosis coli without CT evidence of acute diverticulitis. MRI abdomen MR/MR abdomen wo con IMPRESSION: 1. There is focal prominence of the pancreatic tail which may be related to normal parenchymal tissue, however an underlying mass is not excluded on this unenhanced study. Recommend dedicated pancreatic CT once acute pancreatitis has resolved. Changes related to acute pancreatitis may obscure the underlying parenchyma. Patient was not able to tolerate today's MRI. 2. Findings of acute interstitial edematous pancreatitis are noted. 3. No biliary duct dilation or choledocholithiasis. 4. Hepatomegaly with hepatic steatosis. Hospital course. Pt respodned to standard management for acute pancreatitis, fluids, bowel rest and pain control. Diet advanced and tolerated. Pt was also seen but GI and is expected to follow up out pt. Abd US negative for gall stones. Note created 12/31/17, discharge date 12/31, note completed 01/01/18 Discharge discussed with: patient - Time Spent with Patient Total time spent providing and/or coordinating discharge services: Greater than 30 minutes - Discharge Medications Prescriptions: metFORMIN [Glucophage] 500 mg PO BIDWM #30 tablet Home Medications: Albuterol Neb [Proventil Neb] 2.5 mg IH Q4HR PRN 05/25/16 [History] Albuterol Sulfate [Proair Hfa] 2 puff IH Q4H PRN 05/25/16 [History] Alendronate Sodium [Fosamax] 70 mg PO QWEEK 05/25/16 [History] Calcium Carbonate/Vitamin D3 [Calcium 500-Vit D3 200 Caplet] 1 tab PO DAILY [History] Fluticasone/Salmeterol [Advair 250-50 Diskus] 1 puff IH BID 05/25/16 [History] Lisinopril [Zestril] 10 mg PO DAILY 05/25/16 [History] Omeprazole [PriLOSEC] 20 mg PO DAILY 05/25/16 [History] Oxygen 1 l .ROUTE AD 05/25/16 [History] Pramipexole [Mirapex] 0.25 mg PO HS 05/25/16 [History] Roflumilast [Daliresp] 500 mcg PO DAILY 05/25/16 [History] Sertraline [Zoloft] 100 mg PO DAILY 05/25/16 [History] Simvastatin [Zocor] 80 mg PO DAILY 05/25/16 [History] Umeclidinium [place] [Incruse Ellipta] 1 puff IH DAILY 05/25/16 [History] hydroCHLOROthiazide [Hydrochlorothiazide] 25 mg PO DAILY 05/25/16 [History] Loratadine [Claritin] 10 mg PO DAILY 12/30/17 [History] Nystatin POWDER [Nystop] 1 appl TP BID 12/30/17 [History] Ranitidine HCl [Acid Production Recorder] 150 mg PO BID 12/30/17 [History] Calcium Carbonate/Vitamin D3 [Oyster Shell Calcium-Vit D Tab] 1 each PO DAILY [History] Hydrocodone/Acetaminophen [Verdrocet 2.5-325 mg Tablet] 1 each PO BID PRN [History] Magnesium Oxide [Mag-Oxide] 400 mg PO BID 12/31/17 [History] Pramipexole [Mirapex] 0.25 mg PO HS 12/31/17 [History] Ranitidine HCl [Acid Production Recorder] 150 mg PO BID 12/31/17 [History] Sennosides/Docusate Sodium [Senna Plus] 1 each PO BID 12/31/17 [History] metFORMIN [Glucophage] 500 mg PO BIDWM #30 tablet 12/31/17 [Rx] Allergies/Adverse Reactions: 3 Allergy/AdvReac Type Severity Reaction Status Date / Time NSAIDS (Non-Steroidal Allergy See Verified 05/25/16 11:44 Anti-Inflamma Comments Date of admission: 12/30/17 16:21 Primary care physician: Aaron Arreaga MD Discharging clinician: Alessia Salgado Anticipated date of discharge: 12/31/17 - Constitutional Vitals: Temp Pulse Resp BP Pulse Ox 98.0 F 75 16 132/64 95 12/31/17 11:50 12/31/17 11:50 12/31/17 11:50 12/31/17 11:50 12/31/17 11:50 General appearance: Present: cooperative, mild distress (moderate distress due to epigastric pain), A&O X 3, answers questions appropriately Exam: . - Head Head exam: Present: atraumatic, normocephalic - Eye Eye exam: Present: PERRL, conjuntiva pink, sclera anicteric Pupils: Present: PERRL - Neck Neck exam general surgery: Present: supple, trachea midline. Absent: lymphadenopathy - Respiratory Respiratory exam: Present: CTAB. Absent: accessory muscle use, rales, rhonchi, wheezes - Cardiovascular Cardiovascular exam: Present: RRR, +S1, +S2. Absent: diastolic murmur, gallop, rubs, systolic murmur - GI/Abdominal GI/Abdominal exam: Present: normal bowel sounds, soft, no peritoneal signs. Absent: distended, tenderness - Extremities Exam Extremities exam: Present: warm, radial pulses palpable and symmetrical. Absent : calf tenderness, cyanotic, pedal edema - Neurological Exam Neurological exam: Present: CN II-XII intact, oriented X3, no focal deficits. Absent: pronater drift, facial droop, speech deficit - Skin Skin exam: Present: dry, intact - Patient Status Disposition: Home, Self-Care Condition: Good Overall status at discharge: patient is back to baseline - Discharge Instructions Instructions: Metformin (By mouth), Pancreatitis (DC) Follow Up With: Aaron Arreaga MD [Primary Care Provider] - 01/02/18 3:15 pm () - Diet and Activity Activity: increase activity as tolerated Diet: diabetic diet
[2017-12-31 15:05] LABS: Estimated Average Glucose 280 mg/dl; Hemoglobin A1C 11.4 %
[2018-01-01 15:05] LABS: Immunoglobulin G Subclass 1 298 mg/dL (240-1118); Immunoglobulin G Subclass 2 90 mg/dL (124-549); Immunoglobulin G Subclass 3 53 mg/dL (21-134); Immunoglobulin G Subclass 4 15 mg/dL (1-123)
[2018-01-02 08:28] LABS: ANA IgG by ELISA NONE DETECTED (None Detected)
== END 2017-12-31 16:00 | disposition home or self-care (01) | DRG 439 ==
LOC: 3BNU 21:18 → EMEROOARM 21:18 → 3BNU 12-28 01:03
PROVIDERS: ADMIT Family Medicine; ATTEND Family Medicine

== ENCOUNTER 2019-04-02 08:44 | Inpatient (IN) ==
[2019-04-02] MEDS ORDERED: Albuterol 2.5 MG/3 ML NEBULIZER IH PRN (09:18)
[2019-04-02] MEDS ORDERED: CeFAZolin Syr 2,000MG/20 ML 2,000 MG/20 ML SYRINGE IVPB ONE ×2 (09:18→10:08)
[2019-04-02] MEDS ORDERED: Ringers Solution, Lactated 1,000 ML IVC SCH ×2 (09:30→10:00)
[2019-04-02] MEDS ORDERED: Dexamethasone 4 MG/ML VIAL ONE (09:39)
[2019-04-02] MEDS ORDERED: Ondansetron 4 MG/2 ML VIAL ONE (09:39)
[2019-04-02] MEDS ORDERED: *HR* Rocuronium Bromide 50 MG/5 ML VIAL ONE (09:39)
[2019-04-02] MEDS ORDERED: Lidocaine -MPF 2% 2 ML VIAL ONE (09:39)
[2019-04-02] MEDS ORDERED: *HR* FentaNYL (PF) 100 MCG/2 ML VIAL ONE ×2 (09:39→11:36)
[2019-04-02] MEDS ORDERED: *HR* Propofol 200 MG/20 ML VIAL IVP ONE (09:39)
[2019-04-02] MEDS ORDERED: *HR* Succinylcholine 200 MG/10 ML VIAL IVP ONE (09:39)
[2019-04-02] MEDS ORDERED: *HR* OxyCODONE Immed Rel 5 MG TABLET PO PRN (09:50)
[2019-04-02] MEDS ORDERED: *HR* Promethazine 25 MG/ML VIAL IVP PRN (09:50)
[2019-04-02] MEDS ORDERED: Bacitracin 50,000 UNIT, Polymyxin B Sulfate 500,000 UNIT, Sodium Chloride IRRigation 1,... IR ONE (10:20)
[2019-04-02] MEDS ORDERED: Acetaminophen IV 1,000 MG/100 ML INFUS..BTL ONE (10:46)
[2019-04-02] MEDS ORDERED: Lidocaine HCL 4 ML Topical Solution (Laryng-O-Jet Kit Sterile Pak) TP ONE (10:48)
[2019-04-02] MEDS ORDERED: *HR* HYDROMORPHONE 2 MG/ML VIAL ONE (13:10)
[2019-04-02] MEDS: *HR* HYDROmorphone (PF) 1 MG/ML SYRINGE IVP PRN ×2 (13:37→13:47)
[2019-04-02] MEDS ORDERED: Naloxone 0.4 MG/ML INJ IVP PRN (14:59)
[2019-04-02] MEDS: Ringers Solution, Lactated 1,000 ML IVC SCH (16:53)
[2019-04-02] MEDS: *HR* HYDROcodone/Acet 5/325 mg TABLET PO PRN (18:48)
[2019-04-02] MEDS: Sennosides/Docusate Sodium TABLET PO SCH (18:49)
[2019-04-02] MEDS: Cholecalciferol (D-3) 1,000 UNIT (25MCG) TABLET PO SCH (18:49)
[2019-04-02] MEDS: UMECLIDINIUM BROMIDE IH SCH ×2 (18:49→20:50)
[2019-04-02] MEDS: *HR* OxyCODONE Immed Rel 5 MG TABLET PO PRN (20:49)
[2019-04-02] MEDS: Famotidine 20 MG TABLET PO SCH (20:50)
[2019-04-02] MEDS: Magnesium Oxide 400 MG TABLET PO SCH (20:50)
[2019-04-02] MEDS: (Ketotifen Fumarate [Zaditor] 1 DROP) OP SCH (20:51)
[2019-04-02] MEDS: Nystatin POWDER 30 GM BOTTLE TP SCH (22:06)
[2019-04-02] MEDS: Acetaminophen 325 MG TABLET PO PRN (23:13)
[2019-04-03] MEDS: *HR* OxyCODONE Immed Rel 5 MG TABLET PO PRN ×5 (00:51→20:12)
[2019-04-03] MEDS: Ringers Solution, Lactated 1,000 ML IVC SCH ×2 (01:03→23:57)
[2019-04-03] MEDS: Ondansetron 4 MG/2 ML VIAL IVP PRN ×2 (03:15→20:11)
[2019-04-03] MEDS: *HR* SitaGLIPtin 25 MG TABLET PO SCH (09:19)
[2019-04-03] MEDS: Famotidine 20 MG TABLET PO SCH ×2 (09:19→20:10)
[2019-04-03] MEDS: Magnesium Oxide 400 MG TABLET PO SCH ×2 (09:20→20:10)
[2019-04-03] MEDS: Loratadine 10 MG TABLET PO SCH (09:20)
[2019-04-03] MEDS: hydroCHLOROthiazide 25 MG TABLET PO SCH (09:20)
[2019-04-03] MEDS: (Roflumilast [Daliresp] 500 MCG) PO SCH (09:22)
[2019-04-03] MEDS: (Ketotifen Fumarate [Zaditor] 1 DROP) OP SCH (09:22)
[2019-04-03] MEDS: Nystatin POWDER 30 GM BOTTLE TP SCH ×2 (09:24→20:11)
[2019-04-03] MEDS: *HR* HYDROcodone/Acet 5/325 mg TABLET PO PRN ×3 (11:46→23:26)
[2019-04-03] MEDS: Fluticasone Propionate Nasal 50 MCG/SPRAY BOTTLE NS SCH (11:46)
[2019-04-03] MEDS: Acetaminophen 325 MG TABLET PO PRN (14:54)
[2019-04-03] MEDS: Sennosides/Docusate Sodium TABLET PO SCH (18:03)
[2019-04-03] MEDS: Cholecalciferol (D-3) 1,000 UNIT (25MCG) TABLET PO SCH (18:03)
[2019-04-03] MEDS: UMECLIDINIUM BROMIDE IH SCH (18:04)
[2019-04-03] MEDS ORDERED: Temazepam 15 MG CAPSULE PO PRN (20:44)
[2019-04-03] MEDS ORDERED: diazePAM 5 MG TABLET PO PRN (20:44)
[2019-04-04] MEDS: (Ketotifen Fumarate [Zaditor] 1 DROP) OP SCH ×2 (04:19→10:36)
[2019-04-04] MEDS: Ringers Solution, Lactated 1,000 ML IVC SCH ×2 (04:19→05:15)
[2019-04-04] MEDS: *HR* HYDROcodone/Acet 5/325 mg TABLET PO PRN (04:59)
[2019-04-04] MEDS: hydroCHLOROthiazide 25 MG TABLET PO SCH (10:31)
[2019-04-04] MEDS: *HR* OxyCODONE Immed Rel 5 MG TABLET PO PRN ×2 (10:31→14:46)
[2019-04-04] MEDS: Magnesium Oxide 400 MG TABLET PO SCH (10:31)
[2019-04-04] MEDS: Fluticasone Propionate Nasal 50 MCG/SPRAY BOTTLE NS SCH (10:32)
[2019-04-04] MEDS: Loratadine 10 MG TABLET PO SCH (10:32)
[2019-04-04] MEDS: *HR* SitaGLIPtin 25 MG TABLET PO SCH (10:34)
[2019-04-04] MEDS: Nystatin POWDER 30 GM BOTTLE TP SCH (10:35)
[2019-04-04] MEDS: Famotidine 20 MG TABLET PO SCH (10:36)
[2019-04-04] MEDS: (Roflumilast [Daliresp] 500 MCG) PO SCH (10:36)
[2019-04-04] MEDS ORDERED: NON-FORMULARY MEDICATION 1 EACH EACH (Alendronate Sodium [Fosamax] 70 MG) PO SCH (13:09)
[2019-04-04 15:24] VITALS: BP 144/72
== END 2019-04-04 17:30 | disposition home health service (06) | DRG 519 ==
LOC: SAMDAY 08:44 → 3ANU 14:52
PROVIDERS: ADMIT Orthopaedic Surgery Orthopaedic Surgery of the Spine; ATTEND Orthopaedic Surgery Orthopaedic Surgery of the Spine

== ENCOUNTER 2019-11-11 08:56 | Inpatient (IN) ==
[2019-11-11] MEDS ORDERED: Insulin Human Regular 100 UNIT in 0.9 % Sodium Chloride 100 ML IVC SCH (09:15)
[2019-11-11] MEDS ORDERED: 0.9 % Sodium Chloride 2,000 ML ONE (09:23)
[2019-11-11] MEDS: 0.9 % Sodium Chloride 1,000 ML IVC SCH ×2 (09:28→10:40)
[2019-11-11 09:34] LABS: VBG HCO3 20 mEq/L (21-27); VBG PCO2 38 mmHg (41-51); VBG PH 7.33 pH Units (7.32-7.42); VBG PO2 189 mmHg (25-50)
[2019-11-11 09:38] LABS: Basophils # 0.1 K/mcL (0.0-0.2); Basophils % 0.8 %; Eosinophils # 0.1 K/mcL (0.0-0.6); Eosinophils % 1.3 %; Hemoglobin 12.6 g/dL (11.5-15.4); Immature Granulocytes % 1.5 % (0-4); Lymphocytes % 16.3 %; Mean Corpuscular HGB Conc 31.5 g/dL (31.6-35.5); Mean Corpuscular Hemoglobin 27.2 pg (28.0-33.3); Mean Corpuscular Volume 86.4 fL (83.0-100.0); Mean Platelet Volume 10.6 fL (9.4-12.4); Monocytes # 0.4 K/mcL (0.0-1.3); Monocytes % 7.1 %; Neutrophils # 4.4 K/mcL (1.6-8.9); Platelet Count 162 K/mcL (140-400); Red Blood Count 4.63 M/mcL (3.82-4.97); Red Cell Distribution Width 15.3 % (11.5-14.5); White Blood Count 6.1 K/mcL (4.3-11.1)
[2019-11-11 10:13] LABS: Alanine Aminotransferase 11 Units/L (7-52); Albumin 3.9 g/dL (3.5-5.7); Albumin/Globulin Ratio 1.6 (1.1-2.2); Alkaline Phosphatase 88 Units/L (34-104); Aspartate Amino Transferase 8 Units/L (13-39); BUN/Creatinine Ratio 24 (6-26); Bilirubin,Total 0.5 mg/dL (0.3-1.0); Blood Urea Nitrogen 27 mg/dL (8-23); Calcium 8.6 mg/dL (8.6-10.3); Carbon Dioxide 19 mEq/L (23-29); Chloride 92 mEq/L (98-107); Globulin 2.5 g/dL (2.4-3.5); Glucose 836 mg/dL (70-105); Magnesium 1.7 mg/dL (1.6-2.6); Osmolality,Calculated 300 (280-300); Potassium 4.1 mEq/L (3.5-5.1); Sodium 122 mEq/L (136-145); Total Protein 6.4 g/dL (6.4-8.9); Troponin I < 0.03 ng/mL (< 0.04); eGFR For African Americans 57 (> 60); eGFR For Non-African Americans 47 (> 60)
[2019-11-11] MEDS ORDERED: *HR* Dextrose 50 % in Water (Vial) 50 ML VIAL IVP PRN ×2 (10:14→13:07)
[2019-11-11] MEDS ORDERED: 0.45 % Sodium Chloride w/KCl 20 MEQ/1,000 ML MLS IVC SCH (10:15)
[2019-11-11 10:29] LABS: Bilirubin,Urine Negative (Negative); Blood,Urine Negative (Negative); Clarity,Urine Clear (Clear); Color,Urine Colorless (Yellow); Glucose,Urine (UA) >=1000 mg/dL (Normal); Ketones,Urine Negative (Negative); Leukocyte Esterase,Urine Negative (Negative); Nitrite,Urine Negative (Negative); Protein,Urine Negative (Neg-Trace); RBC,Urine 0-3 per hpf (0-3); Specific Gravity,Urine > 1.030 (1.010-1.025); Squamous Epithelial Cell,Urine Few per hpf (None-Few); Urobilinogen,Urine Normal (Normal); WBC,Urine 0-3 per hpf (0-3)
[2019-11-11 10:34] LABS: Adenovirus Not Detected (Not Detect); Bordetella Pertussis Not Detected (Not Detect); Chlamydophila pneumoniae Not Detected (Not Detect); Coronavirus 229E Not Detected (Not Detect); Coronavirus HKU1 Not Detected (Not Detect); Coronavirus NL63 Not Detected (Not Detect); Coronavirus OC43 Not Detected (Not Detect); Human Metapneumovirus Not Detected (Not Detect); Human Rhinovirus/Enterovirus Not Detected (Not Detect); Influenza A Subtype 2009 H1 Not Detected (Not Detect); Influenza B Not Detected (Not Detect); Mycoplasma pneumoniae Not Detected (Not Detect); Parainfluenza Virus 1 Not Detected (Not Detect); Parainfluenza Virus 2 Not Detected (Not Detect); Parainfluenza Virus 3 Not Detected (Not Detect); Parainfluenza Virus 4 Not Detected (Not Detect); Respiratory Syncytial Virus Not Detected (Not Detect)
[2019-11-11] MEDS ORDERED: Insulin Human Regular 10 UNIT in 0.9 % Sodium Chloride 10 ML IV ONE (10:36)
[2019-11-11] MEDS ORDERED: Naloxone 0.4 MG/ML INJ IVP PRN (11:13)
[2019-11-11] MEDS ORDERED: Ondansetron ODT 4 MG TAB.RAPDIS SL PRN (11:13)
[2019-11-11] MEDS ORDERED: Ipratropium/Albuterol Neb 3 ML IH PRN (11:28)
[2019-11-11 12:11] LABS: BUN/Creatinine Ratio 25 (6-26); Blood Urea Nitrogen 25 mg/dL (8-23); Carbon Dioxide 21 mEq/L (23-29); Chloride 100 mEq/L (98-107); Glucose 633 mg/dL (70-105); Osmolality,Calculated 302 (280-300); Potassium 3.9 mEq/L (3.5-5.1); Sodium 129 mEq/L (136-145); eGFR For African Americans > 60 (> 60); eGFR For Non-African Americans 54 (> 60)
[2019-11-11 12:55] LABS: Phosphorous 4.5 mg/dL (2.7-4.5)
[2019-11-11] MEDS ORDERED: Dextrose Gel 15 GM/37.5 ML TUBE PO PRN ×2 (13:07)
[2019-11-11] MEDS ORDERED: D5% in Water 1,000 ML IVC PRN (13:07)
[2019-11-11] MEDS: Insulin LISPRO 300 UNITS/3 ML VIAL SQ SCH ×2 (13:42→17:19)
[2019-11-11 17:26] LABS: BUN/Creatinine Ratio 27 (6-26); Blood Urea Nitrogen 23 mg/dL (8-23); Calcium 8.6 mg/dL (8.6-10.3); Carbon Dioxide 21 mEq/L (23-29); Chloride 104 mEq/L (98-107); Glucose 301 mg/dL (70-105); Osmolality,Calculated 291 (280-300); Potassium 3.8 mEq/L (3.5-5.1); Sodium 133 mEq/L (136-145); eGFR For African Americans > 60 (> 60); eGFR For Non-African Americans > 60 (> 60)
[2019-11-11] MEDS: Acetaminophen 325 MG TABLET PO PRN ×2 (18:03→20:28)
[2019-11-11] MEDS ORDERED: Insulin DETEMIR 100 UNIT/ML X5UNITS SQ SCH (21:00)
[2019-11-11] MEDS ORDERED: Insulin LISPRO 300 UNITS/3 ML VIAL SQ SCH (21:00)
[2019-11-12 05:43] LABS: Hematocrit 36.7 % (35.3-44.9); Hemoglobin 11.9 g/dL (11.5-15.4); Mean Corpuscular HGB Conc 32.4 g/dL (31.6-35.5); Mean Corpuscular Hemoglobin 27.4 pg (28.0-33.3); Mean Corpuscular Volume 84.4 fL (83.0-100.0); Mean Platelet Volume 10.8 fL (9.4-12.4); Platelet Count 165 K/mcL (140-400); Red Blood Count 4.35 M/mcL (3.82-4.97); Red Cell Distribution Width 14.7 % (11.5-14.5); White Blood Count 5.1 K/mcL (4.3-11.1)
[2019-11-12 06:00] LABS: BUN/Creatinine Ratio 23 (6-26); Blood Urea Nitrogen 19 mg/dL (8-23); Carbon Dioxide 19 mEq/L (23-29); Chloride 104 mEq/L (98-107); Glucose 304 mg/dL (70-105); Osmolality,Calculated 290 (280-300); Potassium 3.9 mEq/L (3.5-5.1); Sodium 133 mEq/L (136-145); eGFR For African Americans > 60 (> 60); eGFR For Non-African Americans > 60 (> 60)
[2019-11-12 07:30] LABS: Estimated Average Glucose 375 mg/dl
[2019-11-12] MEDS: Insulin LISPRO 300 UNITS/3 ML VIAL SQ SCH ×3 (08:14→16:13)
[2019-11-12] MEDS: hydroCHLOROthiazide 25 MG TABLET PO SCH (10:22)
[2019-11-12] MEDS: lisinopriL 10 MG TABLET PO SCH (10:22)
[2019-11-12] MEDS ORDERED: Dextrose Gel 15 GM/37.5 ML TUBE PO PRN ×2 (11:23)
[2019-11-12] MEDS ORDERED: D5% in Water 1,000 ML IVC PRN (11:23)
[2019-11-12] MEDS ORDERED: *HR* Dextrose 50 % in Water (Vial) 50 ML VIAL IVP PRN (11:23)
[2019-11-12] MEDS: Insulin DETEMIR 100 UNIT/ML X5UNITS SQ SCH ×2 (12:12→19:43)
[2019-11-12] MEDS: Gabapentin 300 MG CAPSULE PO SCH ×2 (16:13→19:42)
[2019-11-12] MEDS: Magnesium Oxide 400 MG TABLET PO SCH (19:42)
[2019-11-12] MEDS: Nystatin POWDER 30 GM BOTTLE TP SCH (19:43)
[2019-11-12] MEDS: Budesonide/Formoterol 80/4.5 1 PUFF INH IH SCH (19:54)
[2019-11-12] MEDS: *HR* Heparin 5,000 UNIT/ML VIAL SQ SCH (22:08)
[2019-11-13] MEDS: *HR* Heparin 5,000 UNIT/ML VIAL SQ SCH ×3 (04:55→21:16)
[2019-11-13 05:38] LABS: BUN/Creatinine Ratio 30 (6-26); Blood Urea Nitrogen 25 mg/dL (8-23); Calcium 9.4 mg/dL (8.6-10.3); Carbon Dioxide 21 mEq/L (23-29); Chloride 99 mEq/L (98-107); Glucose 393 mg/dL (70-105); Magnesium 1.8 mg/dL (1.6-2.6); Osmolality,Calculated 293 (280-300); Potassium 3.7 mEq/L (3.5-5.1); Sodium 131 mEq/L (136-145); eGFR For African Americans > 60 (> 60); eGFR For Non-African Americans > 60 (> 60)
[2019-11-13 05:41] LABS: Basophils % 0.7 %; Eosinophils # 0.1 K/mcL (0.0-0.6); Eosinophils % 1.7 %; Hematocrit 36.5 % (35.3-44.9); Hemoglobin 11.9 g/dL (11.5-15.4); Lymphocytes # 1.6 K/mcL (0.6-4.6); Lymphocytes % 27.9 %; Mean Corpuscular HGB Conc 32.6 g/dL (31.6-35.5); Mean Corpuscular Hemoglobin 27.8 pg (28.0-33.3); Mean Corpuscular Volume 85.3 fL (83.0-100.0); Mean Platelet Volume 10.6 fL (9.4-12.4); Monocytes # 0.4 K/mcL (0.0-1.3); Monocytes % 6.5 %; Neutrophils # 3.6 K/mcL (1.6-8.9); Platelet Count 170 K/mcL (140-400); Red Blood Count 4.28 M/mcL (3.82-4.97); Segmented Neutrophils % 62.2 %; White Blood Count 5.9 K/mcL (4.3-11.1)
[2019-11-13] MEDS: Budesonide/Formoterol 80/4.5 1 PUFF INH IH SCH ×2 (08:05→21:15)
[2019-11-13] MEDS: Insulin LISPRO 300 UNITS/3 ML VIAL SQ SCH ×4 (08:08→17:18)
[2019-11-13] MEDS: Cholecalciferol (D-3) 1,000 UNIT (25MCG) TABLET PO SCH (08:10)
[2019-11-13] MEDS: Insulin DETEMIR 100 UNIT/ML X5UNITS SQ SCH (08:10)
[2019-11-13] MEDS: hydroCHLOROthiazide 25 MG TABLET PO SCH (08:10)
[2019-11-13] MEDS: Magnesium Oxide 400 MG TABLET PO SCH ×2 (08:10→21:16)
[2019-11-13] MEDS: Famotidine 20 MG TABLET PO SCH (08:11)
[2019-11-13] MEDS: lisinopriL 10 MG TABLET PO SCH (08:11)
[2019-11-13] MEDS: Gabapentin 300 MG CAPSULE PO SCH ×3 (08:11→21:16)
[2019-11-13] MEDS: Nystatin POWDER 30 GM BOTTLE TP SCH (08:12)
[2019-11-13] MEDS ORDERED: Insulin LISPRO 300 UNITS/3 ML VIAL SQ SCH (12:00)
[2019-11-13] MEDS ORDERED: Insulin LISPRO 300 UNITS/3 ML VIAL SQ ONE (13:36)
[2019-11-13 15:07] LABS: Calcium 8.9 mg/dL (8.6-10.3); Potassium 3.7 mEq/L (3.5-5.1)
[2019-11-13] MEDS ORDERED: D5% in 0.45% NACL w KCl 20 MEQ/1,000 ML MLS IVC PRN (15:12)
[2019-11-13] MEDS ORDERED: D5% in 0.45% NACL 1,000 ML IVC PRN (15:12)
[2019-11-13] MEDS ORDERED: 0.9 % Sodium Chloride 1,000 ML IVC SCH (15:15)
[2019-11-13] MEDS ORDERED: Insulin Human Regular 100 UNIT in 0.9 % Sodium Chloride 100 ML IVC SCH (15:15)
[2019-11-13] MEDS ORDERED: 0.45 % Sodium Chloride w/KCl 20 MEQ/1,000 ML MLS IVC SCH (15:15)
[2019-11-13] MEDS: Insulin Human Regular 100 UNIT in 0.9 % Sodium Chloride 100 ML IVC SCH ×2 (16:03→22:25)
[2019-11-13 19:25] LABS: Potassium 4.1 mEq/L (3.5-5.1)
[2019-11-13] MEDS ORDERED: Insulin DETEMIR 100 UNIT/ML X5UNITS SQ SCH (21:00)
[2019-11-14 01:05] LABS: BUN/Creatinine Ratio 29 (6-26); Blood Urea Nitrogen 28 mg/dL (8-23); Calcium 9.1 mg/dL (8.6-10.3); Carbon Dioxide 20 mEq/L (23-29); Chloride 100 mEq/L (98-107); Glucose 281 mg/dL (70-105); Osmolality,Calculated 290 (280-300); Potassium 3.4 mEq/L (3.5-5.1); Sodium 132 mEq/L (136-145); eGFR For African Americans > 60 (> 60); eGFR For Non-African Americans 57 (> 60)
[2019-11-14] MEDS: Nystatin POWDER 30 GM BOTTLE TP SCH ×3 (02:04→21:02)
[2019-11-14 03:37] LABS: BUN/Creatinine Ratio 34 (6-26); Blood Urea Nitrogen 27 mg/dL (8-23); Carbon Dioxide 23 mEq/L (23-29); Chloride 103 mEq/L (98-107); Glucose 186 mg/dL (70-105); Osmolality,Calculated 290 (280-300); Potassium 3.3 mEq/L (3.5-5.1); Sodium 135 mEq/L (136-145); eGFR For African Americans > 60 (> 60); eGFR For Non-African Americans > 60 (> 60)
[2019-11-14] MEDS: *HR* Heparin 5,000 UNIT/ML VIAL SQ SCH ×3 (05:01→21:02)
[2019-11-14 05:56] LABS: Basophils % 0.8 %; Eosinophils # 0.1 K/mcL (0.0-0.6); Eosinophils % 2.7 %; Hematocrit 35.7 % (35.3-44.9); Hemoglobin 11.6 g/dL (11.5-15.4); Immature Granulocytes % 0.8 % (0-4); Lymphocytes # 1.1 K/mcL (0.6-4.6); Lymphocytes % 23.3 %; Mean Corpuscular HGB Conc 32.5 g/dL (31.6-35.5); Mean Corpuscular Hemoglobin 27.4 pg (28.0-33.3); Mean Corpuscular Volume 84.4 fL (83.0-100.0); Mean Platelet Volume 11.2 fL (9.4-12.4); Monocytes # 0.4 K/mcL (0.0-1.3); Monocytes % 8.9 %; Platelet Count 154 K/mcL (140-400); Red Blood Count 4.23 M/mcL (3.82-4.97); Red Cell Distribution Width 15.1 % (11.5-14.5); Segmented Neutrophils % 63.5 %; White Blood Count 4.7 K/mcL (4.3-11.1)
[2019-11-14 06:17] LABS: Calcium 8.8 mg/dL (8.6-10.3); Magnesium 1.5 mg/dL (1.6-2.6); Potassium 3.4 mEq/L (3.5-5.1)
[2019-11-14] MEDS ORDERED: Magnesium Sulfate 1 GM/102 ML PIGGYBACK IVPB ONE (07:26)
[2019-11-14] MEDS: Budesonide/Formoterol 80/4.5 1 PUFF INH IH SCH ×2 (07:57→20:14)
[2019-11-14] MEDS: Gabapentin 300 MG CAPSULE PO SCH ×3 (08:28→21:03)
[2019-11-14] MEDS: Cholecalciferol (D-3) 1,000 UNIT (25MCG) TABLET PO SCH (08:28)
[2019-11-14] MEDS: Magnesium Oxide 400 MG TABLET PO SCH ×2 (08:28→21:03)
[2019-11-14] MEDS: Famotidine 20 MG TABLET PO SCH (08:28)
[2019-11-14] MEDS: lisinopriL 10 MG TABLET PO SCH (08:28)
[2019-11-14] MEDS: hydroCHLOROthiazide 25 MG TABLET PO SCH (08:28)
[2019-11-14] MEDS: Insulin LISPRO 300 UNITS/3 ML VIAL SQ SCH ×6 (08:29→16:55)
[2019-11-14] MEDS ORDERED: Insulin DETEMIR 100 UNIT/ML X5UNITS SQ SCH ×2 (09:00→21:00)
[2019-11-14] MEDS: Acetaminophen 325 MG TABLET PO PRN (21:03)
[2019-11-15 05:19] LABS: BUN/Creatinine Ratio 31 (6-26); Blood Urea Nitrogen 26 mg/dL (8-23); Calcium 8.9 mg/dL (8.6-10.3); Carbon Dioxide 21 mEq/L (23-29); Chloride 101 mEq/L (98-107); Glucose 327 mg/dL (70-105); Magnesium 1.8 mg/dL (1.6-2.6); Osmolality,Calculated 291 (280-300); Phosphorous 5.1 mg/dL (2.7-4.5); Potassium 4.1 mEq/L (3.5-5.1); Sodium 132 mEq/L (136-145); eGFR For African Americans > 60 (> 60); eGFR For Non-African Americans > 60 (> 60)
[2019-11-15] MEDS: *HR* Heparin 5,000 UNIT/ML VIAL SQ SCH (05:58)
[2019-11-15 07:10] VITALS: BP 138/64
[2019-11-15] MEDS: Budesonide/Formoterol 80/4.5 1 PUFF INH IH SCH (07:28)
[2019-11-15] MEDS: Famotidine 20 MG TABLET PO SCH (08:14)
[2019-11-15] MEDS: Gabapentin 300 MG CAPSULE PO SCH (08:14)
[2019-11-15] MEDS: lisinopriL 10 MG TABLET PO SCH (08:14)
[2019-11-15] MEDS: Magnesium Oxide 400 MG TABLET PO SCH (08:15)
[2019-11-15] MEDS: hydroCHLOROthiazide 25 MG TABLET PO SCH (08:15)
[2019-11-15] MEDS: Insulin LISPRO 300 UNITS/3 ML VIAL SQ SCH ×2 (08:15→08:16)
[2019-11-15] MEDS: Cholecalciferol (D-3) 1,000 UNIT (25MCG) TABLET PO SCH (08:17)
[2019-11-15] MEDS ORDERED: Insulin DETEMIR 100 UNIT/ML X5UNITS SQ SCH (09:00)
== END 2019-11-15 11:43 | disposition home or self-care (01) | DRG 638 ==
LOC: EMEROOARM 08:56 → 2NNU 08:56 → SUATTDRO 11:26 → 2NNU 12:40 → SUATTDRO 11-12 14:08
PROVIDERS: ADMIT Family Medicine; ATTEND Internal Medicine